=== PATIENT | female | born 1975 | race African-American/Black ===

== ENCOUNTER 2024-04-20 09:43 | Day surgery (SDC) | payer OTHER ==
[2024-04-19 09:26] VITALS: BMI 30.9
[2024-04-19 09:51] LABS: Hematocrit 38.5 % (34.9-44.5); Mean Corpuscular HGB CONC 31.2 g/dL (32.0-36.0); Mean Corpuscular Hemoglobin 26.1 pg (27.0-33.0); Mean Corpuscular Volume 83.7 fL (81.6-98.3); Mean Platelet Volume 10.5 fL (7.4-10.4); Platelet Count 287 10x3/uL (150-450); RBC Distribution Width 17.7 % (11.5-14.5); White Blood Cell (WBC) Count 7.6 10x3/uL (3.5-10.5)
[2024-04-19 10:34] LABS: BHCG - Serum Negative (NEGATIVE); Pregs Control Background? CLEAR/WHITE (CLR/WHITE); Pregs Control Bar Appear? YES (CONTROL BAR)
[2024-04-20] MEDS ORDERED: Famotidine/PF 20 mg/2ml Vial ONE (10:03)
[2024-04-20] MEDS ORDERED: CeleCOXIB 100 MG CAP ONE (10:03)
[2024-04-20] MEDS ORDERED: Bupivacaine HCl 0.5%/Epinephrine 1:200,000/PF 30 ml Vial ONE (12:18)
[2024-04-20] MEDS ORDERED: Rocuronium Bromide 10 MG/ML (10ML VIAL) ONE (12:49)
[2024-04-20] MEDS ORDERED: Midazolam HCl 2 mg/2 ml Vial ONE (12:49)
[2024-04-20] MEDS ORDERED: Fentanyl 250 MCG/5 ML VIAL ONE (12:49)
[2024-04-20] MEDS ORDERED: Lidocaine 1% PF 5 ML VIAL ONE (12:49)
[2024-04-20] MEDS ORDERED: PROPOFOL 20 ML ONE (12:49)
[2024-04-20] MEDS ORDERED: Dexamethasone 4 mg/ml Vial ONE (12:49)
[2024-04-20] MEDS ORDERED: Ondansetron PF 4 MG/2 ML Vial ONE (12:49)
[2024-04-20] MEDS ORDERED: CEFAZOLIN 2 GM VIAL ONE (12:52)
[2024-04-20] MEDS ORDERED: SUGAMMADEX SODIUM 200 MG/2 ML VIAL ONE ×2 (14:32→14:57)
[2024-04-20] MEDS ORDERED: Ketorolac Tromethamine 30 MG (1 mL) VIAL ONE (14:34)
[2024-04-20] MEDS ORDERED: fentaNYL 50 mcg/mL 1 mL Vial ONE (15:34)
[2024-04-20] MEDS ORDERED: Meperidine HCl/PF 25 MG (1 mL) VIAL ONE (15:37)
[2024-04-20] MEDS ORDERED: HYDROcodone/Acetaminophen 5/325 mg Tablet ONE (16:43)
== END 2024-04-20 18:00 | disposition home or self-care (01) ==
LOC: CSHSDC 09:43
PROVIDERS: ATTEND Obstetrics & Gynecology
PROC: 0UT94ZZ Resection of Uterus, Percutaneous Endoscopic Approach (ICD-10-PCS; principal; 2024-04-20)
DX: D25.1 Intramural leiomyoma of uterus (principal); N72 Inflammatory disease of cervix uteri; N80.03 Adenomyosis of the uterus; N94.89 Other specified conditions associated with female genital organs and menstrual cycle; D64.9 Anemia, unspecified; Z90.79 Acquired absence of other genital organ(s); Z98.51 Tubal ligation status; Z79.1 Long term (current) use of non-steroidal anti-inflammatories (NSAID); Z79.899 Other long term (current) drug therapy
CPT/HCPCS: 36415; 84703; 85027; 86850; 86900; 86901; 88307; J1100; J1885; J2175; J2250; J2405; J2704; J3010; J3490; S2900